=== PATIENT | male | born 1935 | race Caucasian/White ===

== ENCOUNTER 2017-03-06 06:00 | Observation (INO) | payer BC, MEDICARE ==
--- NOTE | ~2017-03-06 | PRECARD ---
H&P PRE [facility] [address] [place]. [address] NAME: LAMBERT PAGE JR : 35 STATUS : ADM Tran PAT#: [id number] AGE: 82 ADM/REG DATE : 03/06/17 MR#: [id number] REPORT SERV DATE: 03/06/17 DICTATED BY: LAYLA CARTER DATE: 03/06/17 REPORT STATUS : Draft TRANSCRIBED BY: JYOTSNA DATE: 03/06/17 DATE OF ADMISSION: 03/06/2017 HISTORY OF PRESENT ILLNESS: Mr. Lambert Page is an 82-year-old gentleman, transferred to [facility] from [facility] with abdominal discomfort. Mr. Page has a history of atrial fibrillation. He has no known cardiovascular disease. Yesterday, he was feeling fine. He developed a sudden onset of discomfort in his abdomen, just around his umbilicus that lasted about 10 minutes, he and his reports. He called the ambulance. When the ambulance arrived, that discomfort got completely resolved already. That discomfort was associated with some diaphoresis and pallor, he reports. He has not had discomfort previously or subsequently. No nausea or vomiting. He absolutely denies, on repeated questioning, any chest discomfort. Had no discomfort in his left arm. He had no dyspnea. At [facility], his troponin level was 0.045. He was transferred to [facility]. He feels fine. He has had no discomfort since that episode of abdominal discomfort, again which had resolved before the ambulance arrived. He had no recurrent pain. Again, he has had no chest discomfort previously or subsequently. He feels great, and he wants to go home. He has had no orthopnea or PND. No palpitations. No stroke or stroke-like symptoms. PAST MEDICAL HISTORY: Atrial fibrillation, hypertension, and diabetes. MEDICATIONS: Warfarin, glipizide, metformin, simvastatin, diltiazem, and lisinopril. SOCIAL HISTORY: No tobacco, no alcohol, he is still working with [employer]. FAMILY HISTORY: Noncontributory. REVIEW OF SYSTEMS: A complete review of systems obtained, pertinent negative and remarkable, except as noted above and below, all systems addressed. PHYSICAL EXAMINATION: VITAL SIGNS: Blood pressure 166/92, heart rate 68. GENERAL: Comfortable, in no acute distress. HEENT: No xanthelasma; lips without cyanosis. LUNGS: Clear to auscultation, no wheezes, rales or rhonchi; good breath sounds. COR: No JVD or hepatojugular reflux, no murmurs, rubs or gallops, impulse midclavicular line without carotid or abdominal bruits; normal S1 and S2. ABDOMEN: Bowel sounds positive, normal activity, without tenderness, masses or hepatosplenomegaly. EXTREMITIES: No edema, cyanosis. H&P [address] [address] NAME: LAMBERT PAGE JR : 35 STATUS : ADM Tran PAT#: [id number] AGE: 82 ADM/REG DATE : 03/06/17 MR#: [id number] REPORT SERV DATE: 03/06/17 DICTATED BY: LAYLA CARTER DATE: 03/06/17 REPORT STATUS : Draft TRANSCRIBED BY: JYOTSNA DATE: 03/06/17 SKIN: Normal turgor. MUSCULOSKELETAL: Normal muscle strength, without kyphosis/scoliosis. NEURO/PSYCH: Alert and oriented times 4, no apparent anxiety or depression. IMAGING: EKG: Atrial fibrillation without ischemia. ASSESSMENT: Mr. Page is an 82-year-old gentleman with diabetes, atrial fibrillation, transferred to [facility] because of 10 minutes of abdominal pain, which has completely resolved. On repeated questioning, he denies any chest discomfort. Troponin level was normal at 0.045. His EKG shows no ischemia. PLAN: 1. Serial biomarkers. 2. If he has had no recurrence of the discomfort and if the biomarker is normal, I would discharge to home without any other changes. AWILDA/JYOTSNA Layla Carter M.D. / [id number] CC: Omero Raymond MD
[~2017-03-06 06:00] MED LIST: AGELESS MALE PO; ATEN50 PO; C5 PO; CARD120 PO; CARTIA XT120 MG/24 PO; DILTIAZEM ER; FORTAMET500 MG PO; GLUCCHONDR PO; GLUCPH PO; GLUCXL2.5 PO; INSTAFLEX PO; JANTOVEN6 MG PO; MULTIPLE VIT PO; OSTEO BI-FLEX1 EACH PO; OSTEO BI-FLX PO; PERCOCET1 TA4 PO; PROSTATE SR SO1 EACH PO; SAW PALMETT1 PO; SAW PALMETTO; SAW PALMETTO PO; TYLENOL ARTH650 MG PO; TYLENOL ARTHRITIS PO; ZESTORETIC1 TAB PO; ZESTRIL10 MG PO; ZOCOR20 PO; [UNRECOGNIZED DRUG - OTHER]; [UNRECOGNIZED DRUG - OTHER]
[2017-03-06 07:05] LABS: BASOPHILS 0.3 %; BASOPHILS ABSOLUTE 0.02 10/3/uL (0.0-0.16); EOSINOPHILS 3.8 %; EOSINOPHILS ABSOLUTE 0.25 10/3/uL (0.0-0.53); LYMPHOCYTES 27.9 %; LYMPHOCYTES ABSOLUTE 1.82 10/3/uL (0.67-4.30); MEAN CORPUS HGB CONC 33.1 g/dL (32.0-36.0); MEAN CORPUSCULAR HEMOGLOB 28.7 pg (26.0-34.0); MEAN CORPUSCULAR VOLUME 86.6 fL (80-100); MEAN PLATELET VOLUME 10.3 fL (9.2-13.0); MONOCYTES 11.2 %; MONOCYTES ABSOLUTE 0.73 10/3/uL (0.21-1.20); NEUTROPHILS 56.8 %; NEUTROPHILS ABSOLUTE 3.71 10/3/uL (2.02-8.40); PLATELET COUNT 167 10/3/uL (150-400); RBC DISTRIBUTION WIDTH 14.2 % (12.0-16.0); RED CELL COUNT 4.71 10/6/uL (4.7-6.1); WHITE BLOOD CELLS 6.5 10/3/uL (4.5-10.5)
[2017-03-06 07:07] LABS: HEMATOCRIT 40.8 % (40.0-51.0); HEMOGLOBIN 13.5 g/dL (13.6-17.8); MANUAL DIFF NO %
[2017-03-06 07:13] LABS: INTERNATIONAL NORMAL RATI 2.6 UNITS (-); PARTIAL THROMBO TIME 37.7 SEC (22.5-37.2)
[2017-03-06 07:22] LABS: BUN (BLOOD UREA NITROGEN) 13 MG/DL (6-23); CALCIUM, SERUM 8.7 MG/DL (8.5-10.4); CHLORIDE, SERUM 108 MMOL/L (96-112); CHOL/HDL RATIO(NOT ORDER) 2.1 (0-5); CHOLESTEROL 93 MG/DL (< 200); CO2 (CARBON DIOXIDE) 31 MMOL/L (24-34); GFR AFRICAN AMERICAN 72 ML/MIN (>=60); GFR NON AFRICAN AMERICAN 62 ML/MIN (>=60); GLUCOSE, SERUM 104 MG/DL (60-99); HDL CHOLESTEROL 44 MG/DL (> 39); LDL CHOLESTEROL 34 MG/DL (< 130); NON-HDL CHOLESTEROL 49 MG/DL (< 160); POTASSIUM, SERUM 4.1 MMOL/L (3.5-5.3); SGPT(ALT) 24 U/L (5-65); SODIUM, SERUM 141 MMOL/L (135-148); TRIGLYCERIDE 78 MG/DL (< 150); TROPONIN I 0.04 NG/ML (<0.05)
[2017-03-06 07:23] LABS: PROTIME (NOT ORD) 27.7 SEC (12.0-14.5)
[2017-03-06] MEDS ORDERED: CENTRUM PO (09:38)
[2017-03-06] MEDS ORDERED: HARD NAILS PO (09:39)
[2017-03-07 03:56] LABS: BASOPHILS 0.3 %; BASOPHILS ABSOLUTE 0.02 10/3/uL (0.0-0.16); EOSINOPHILS 5.4 %; EOSINOPHILS ABSOLUTE 0.31 10/3/uL (0.0-0.53); HEMATOCRIT 43.4 % (40.0-51.0); HEMOGLOBIN 14.2 g/dL (13.6-17.8); LYMPHOCYTES 29.6 %; MEAN CORPUS HGB CONC 32.7 g/dL (32.0-36.0); MEAN CORPUSCULAR VOLUME 88.8 fL (80-100); MEAN PLATELET VOLUME 10.2 fL (9.2-13.0); MONOCYTES 11.7 %; MONOCYTES ABSOLUTE 0.67 10/3/uL (0.21-1.20); NEUTROPHILS ABSOLUTE 3.04 10/3/uL (2.02-8.40); PLATELET COUNT 181 10/3/uL (150-400); RBC DISTRIBUTION WIDTH 14.2 % (12.0-16.0); RED CELL COUNT 4.89 10/6/uL (4.7-6.1); WHITE BLOOD CELLS 5.7 10/3/uL (4.5-10.5)
[2017-03-07 04:02] LABS: INTERNATIONAL NORMAL RATI 2.7 UNITS (-); PROTIME (NOT ORD) 28.2 SEC (12.0-14.5)
[2017-03-07 04:24] LABS: MANUAL DIFF NO %
== END 2017-03-07 09:46 | disposition home or self-care (01) ==
LOC: 5NO 06:00
PROVIDERS: Internal Medicine Cardiovascular Disease
DX: R10.9 Unspecified abdominal pain (principal); I25.10 Atherosclerotic heart disease of native coronary artery without angina pectoris; I48.91 Unspecified atrial fibrillation; I10 Essential (primary) hypertension; E11.9 Type 2 diabetes mellitus without complications; E78.00 Pure hypercholesterolemia, unspecified; Z79.84 Long term (current) use of oral hypoglycemic drugs; Z79.01 Long term (current) use of anticoagulants; Z79.899 Other long term (current) drug therapy
CPT/HCPCS: 71010; 80048; 80061; 82962; 83735; 84460; 84484; 85025; 85610; 85730; 93005; A9270-GY; G0378